=== PATIENT | female | born 1940 | race Caucasian/White ===

== ENCOUNTER → 2017-02-03 | Outpatient (CLI) | payer MEDICARE, OTHER ==
[~2017-02-03] MED LIST: ACTONEL PO; ASPIRIN EC81 M1 PO; ASPIRIN81 M1 PO; CALCIUM + D 6001 TA1 PO; CALTRATE 600+D PO; CALTRATE PLUS T1 TAB PO; CENTRUM SILVER PO; CIPRO PO; COLACE50 MG PO; FLAGYL PO; IRON PO; LEVAQUIN PO; LORTAB 5/500 TA1 TA1 PO; LORTAB 7.5-5001 TAB; LORTAB 7.5-5001 TAB PO; METAMUCIL FIB1 WAFER PO; MULTI-DAY VITAM1 TAB PO; MULTIVITAMIN1 UDCAP PO; PERCOCET 5-3251 TAB PO; PREMARIN PO; PRILOSEC PO; PRILOSEC20 MG PO; PROMETHAZINE V240 ML PO; SYNTHROID PO; VIT E PO; VITAL-D RX TABL1 TAB PO; VITAMIN D2000 UNIT PO; VITAMIN E1000 UNI1 PO; ZOFRAN ODT4 MG PO
--- NOTE | ~2017-02-03 | MR32 ---
[facility] A Service of [facility] & [facility] RADIOLOGY TEXT RESULTS PATIENT: YAQUELIN MARSHALL LOCATION: [facility] : 44 UNIT #: [id number] AGE: [address]: Karl Zuniga MD SEX: F ORDER DR: [id number] [address] [address] [id number] MR#: [id number] Acc #: [id number] NAME: YAQUELIN MARSHALL : 1940 SEX: F STUDY DATE/TIME: 02/03/2017 10:22 UNIT: [facility] ROOM: STUDY DESCRIPTION: MR Cervical Wo Contrast Attending Physician: Karl Zuniga M.D. Referring Physician: Karl Zuniga M.D. Ordering Physician: Karl Zuniga M.D. Primary Care Physician: Charles Pace M.D. MRI CENTER REPORT This report is preliminary unless electronic signature is present. EXAM MRI of the cervical spine without contrast dated 02/03/2017. COMPARISON MRI cervical spine without contrast dated 05/11/2016. HISTORY Right side radiculopathy that comes and goes for 3 months. Patient fell back in April. Followup study. FINDINGS Multisequence, multiplanar imaging of the cervical spine was obtained without contrast. Vertebral body heights are preserved. Disc-osteophyte complex are noted at multiple levels. No acute fracture. Previously noted right C7-T1 foraminal mass with expansion is again noted measuring 1.6 x 1.7 x 1.8 cm, when compared to the prior 1.3 x 1.7 x 1.5 cm. It does not appear to cause any significant mass effect on the cord nor does it compress the thecal sac at this level. Degenerative changes are noted at multiple levels of the cervical spine. C2-3: Mild degenerative disc signal loss but otherwise unremarkable. Stable. C3-4: Concentric disc bulge with superimposed central small protrusion with mild mass effect on the adjacent thecal sac. No neural foraminal narrowing. Stable. C4-5: Mild disc bulge but no canal stenosis or neural foraminal narrowing. Mild left facet hypertrophic change. C5-6, C6-7: Disc-osteophyte complex without any significant canal stenosis or neural foraminal narrowing. [facility]. [facility] A Service of [facility] RADIOLOGY TEXT RESULTS PATIENT: YAQUELIN MARSHALL LOCATION: [facility] : 44 UNIT #: [id number] AGE: [address]: Karl Zuniga MD SEX: F ORDER DR: C7-T1: The mass in the right neural foramen as described above. No canal stenosis or left neural foraminal narrowing. Edema with mild superior endplate compression deformity of T1 is noted with less than 10% loss of height. No retropulsion of fragment is noted into the canal. IMPRESSION 1. There is a mass in the right C7-T1 neural foramen measuring 1.6 x 1.7 x 1.7 cm. It appears to have slightly increased in size when compared to the previous study. It could also be related to difference in slice selection. 2. Degenerative changes are relatively stable and mild at multiple other levels. 3. Interval new edema is noted along the upper body and superior endplate of T1 with minimal, less-than 10%, superior endplate compression. It is likely related to microtrabecular injury or minimal compression. Correlate with history. Dictated by... Bobby Delaney M.D. THIS IS AN ELECTRONICALLY VERIFIED REPORT Bobby Delaney M.D. at 02/04/2017 6:38 PM CPR/psc TD: 02/04/2017 09:25 JOB #: [id number] MRI CENTER REPORT Page 1 of 1
== END | disposition home or self-care (01) ==
LOC: SMRI 09:47
DX: D49.2 Neoplasm of unspecified behavior of bone, soft tissue, and skin (principal); M47.892 Other spondylosis, cervical region
CPT/HCPCS: 72141